=== PATIENT | male | born 2000 | race Two or more races ===

== ENCOUNTER 2024-09-17 10:58 | Emergency (ER) | payer BC ==
[~2024-09-17] VITALS: Ht 167.6 cm; Wt 59.0 kg
[2024-09-17] MEDS ORDERED: PEPCID AC20 MG PO (13:00)
[2024-09-17] MEDS ORDERED: CEPHALEXIN750 MG PO (13:00)
== END 2024-09-17 13:35 | disposition home or self-care (01) ==
LOC: ER 10:58
DX: L08.9 Local infection of the skin and subcutaneous tissue, unspecified (principal)